=== PATIENT | male | born 1975 | race Caucasian/White ===

== ENCOUNTER 2017-01-26 10:42 | Emergency (ER) | payer MEDICAID ==
[~2017-01-26] VITALS: Ht 180.3 cm; Wt 113.4 kg
--- OUTSIDE RECORDS SUMMARY | 2017-01-26 10:51 | External Medical Summary Rpt | CCD ---
Demographics Preferred Language German Marital Status Unknown Lutheran Affiliation Unknown Race Unknown Ethnic Group Unknown Author Author , BILLY CERVANTES Address Unknown Phone Immunization No patient found.
--- OUTSIDE RECORDS SUMMARY | 2017-01-26 10:51 | External Medical Summary Rpt ---
Author Author BILLY Perea, BILLY Perea Organization [employer] Address Unknown Phone Unavailable
--- OUTSIDE RECORDS SUMMARY | 2017-01-26 10:51 | External Medical Summary Rpt | CCD ---
Author Author , ANGELIKA CERVANTES Address Unknown Phone [email or web address] Purpose Continuity of Care Document - 06-06-2016 through 2016 Problems Code Diagnosis DOS Provider Status M1A.0710 IDIOPATHIC 06-06-2016 CHRONIC GOUT, RIGHT ANKLE AND FOOT, WITHOUT TOPHUS (TOPHI)
--- OUTSIDE RECORDS SUMMARY | 2017-01-26 10:51 | External Medical Summary Rpt | CCD ---
Author Author , ANGELIKA CERVANTES Address Unknown Phone [email or web address] Purpose Continuity of Care Document - 06-06-2016 through 2016 Problems Code Diagnosis DOS Provider Status M1A.0710 IDIOPATHIC 06-06-2016 CHRONIC GOUT, RIGHT ANKLE AND FOOT, WITHOUT TOPHUS (TOPHI)
--- OUTSIDE RECORDS SUMMARY | 2017-01-26 10:51 | External Medical Summary Rpt | CCD ---
Author Author [employer] Organization [employer] Address Unknown Phone Unavailable Purpose Continuity of Care Document - through 2016
--- OUTSIDE RECORDS SUMMARY | 2017-01-26 10:51 | External Medical Summary Rpt | CCD ---
Demographics Preferred Language Tajik Marital Status Unknown Sabianism Affiliation Unknown Race Unknown Ethnic Group Unknown Author Author , BILLY CERVANTES Address Unknown Phone Immunization No patient found.
--- NOTE | 2017-01-26 11:34 | Urgent Treatment Center Report ---
See Addendum History of Present Issue Date/Time Seen by Provider 01/26/17 1133 Visit Reason Pt arrived:Walked Presenting Problem:COUGH, CONGESTION, CHILLS Location if Accident: Onset of symptoms date/time:/ or onset unknown for:MEDICAL HX UNKNOWN Have you (or family members/close friends) recently traveled outside the [place]? N If Yes, where/when: Have you had exposure to infectious disease within the past month? TB? Other? Specify: Here w/ due to cough, chest congestion, mild occasional SOA, chills. No fevers. Cough worse at night and associated with wheezing. Mostly dry. Nonsmoker. Chew tobacco. No known fevers. with same symptoms x 1.5 weeks. Pt started 4 days ago. Source patient Exam Limitations no limitations ALLERGIES Coded Allergies: Penicillins (Mild, 01/26/17) History Medical History General CAD? No Angina: No NM: No Hypertension? No Hyperlipidemia? No CHF? No DVT? No PE? No COPD? No Asthma? No Anemia? No GERD? No Gastric ulcers? No GI Bleed? No Hernia? No Thyroid Problems? No Hypothyroidism? No CVA? No Seizures? No Diabetes? No Renal Insuffiency? No UTI? No Stones? No BPH? No GB Disease: No Nephritic Syndrome? No Asplenia? No Hepatitis? No Sickle Cell Disease? No Arthritis? No Migraines? No Cataracts? No Glaucoma? No MRSA? No HIV? No TB? No Anxiety? No Depression? No Cancer? No More? No Immunization HX DT/Tetanus 1-4 Years Ago Surgical Hx Previous Surgery?N Social History Smoking Hx Smoker: Never Smoker Tobacco: Yes Type Chew Alcohol Alcohol: No Review of Systems All Other Systems Reviewed and Negative Constitutional see HPI Eyes denies drainage ENT nose discharge, nose congestion. denies: ear pain, throat pain. Respiratory see HPI Cardiovascular denies chest pain Gastrointestinal denies no symptoms reported Musculoskeletal denies joint pain Skin denies rash Psychiatric/Neurological denies headache Comment Hx of HTN. Typically borderline. Has taken steroids without difficulty. Aware may increase BP. Rvwd risks/side effects. Still wants it. Physical Exam Vital Signs Vital Signs Date Time Temp Pulse Resp B/P Pulse O2 O2 Flow FiO2 Ox Delivery Rate 01/26 1158 98.4 55 16 160/94 98 01/26 1103 98.4 55 16 160/94 98 General Appearance normal appearance, no apparent distress Eye Exam - bilateral eye normal exam Ear, Nose, Throat normal ENT inspection (x/ mild nasal congestion&chew) Neck non-tender, supple Respiratory Status Yes: trachea midline, chest symmetrical, non tender chest, non productive cough (unchanged w/ deep breath). No: respiratory distress, use of accessory muscles, pain on inspiration, pain on expiration. Lung Sounds anterior: lungs clear. posterior: lungs clear. bilateral: lungs clear. Cardiovascular regular rate/rhythm, no peripheral edema, no murmur Neurologic alert, oriented x 3 Mental status normal mood/affect Skin normal color, warm/dry Lymphatic no adenopathy Medical Decision Making LABS/Meds/Orders Pt receiving controlled substance in ED? No Results/Orders Current Medication Orders Sig/Ra Start time Last Medication Dose Route Stop Time Status Admin Methylprednisolone 125 MG ONCE ONE 01/26 1200 DCD Sodium Succinate IM 01/26 1201 Methylprednisolone 0 .STK-MED ONE 01/26 1153 DC Sodium Succinate .ROUTE Departure Departure Time of Disposition 1152 Disposition DC Home or Self Care(routine) Clinical Impression Primary Impression: Bronchitis, acute Qualifiers: Bronchitis organism: unspecified organism Qualified Code: J20.9 - Acute bronchitis, unspecified Condition STABLE Referrals [facility] (Family) IMMEDIATELY for new or worsening symptoms OR no noticeable improvement over the next 48-72 hours. 911 for difficulty breathing. Patient Instructions DI for Acute Bronchitis Additional Instructions * No antibotic today. Likely viral. Try this plan of care and if no improvement or getting worse, be sure to follow up. * Monitor Temp. Seek treatment if fevers develop * humidifier/vaporizer/hot steamy shower * Inhaler every 4-6 hours as needed like we discussed. If unsure how to use it, ask pharmacist to demonstrate how. Should help open airways and improve cough, wheezing, shortness of breath. * Mucinex during the day for your cough and cough suppressant only at night. Be sure to drink lots of water. Insurance may not cover a prescription of mucinex. Might be cheaper to get 400mg tablets and take 2 tablets morning, midday and evening all with lots of water. * Promethazine DM cough syrup will cause drowsiness. Use it only at night. No driving, operating machinery or caring for small children after taking it. * Start steroid tomorrow. Helps with inflammation therefore, cough and wheezing. Follow directions on package. Rvwd side effects. Monitor your blood pressure and if remains >140/90, stop the steroid and follow up with primary care. Pt reports they have taken them before. Discharge Counseling Counseled pt/family regarding diagnosis, medications/RX, home care, follow up needs Prescriptions Current Visit Scripts ALBUTEROL (Proventil Hfa Inhaler) 1-2 PUFF IH Q4-6H PRN PRN SOA, wheezing #1 CAN Prednisone (Prednisone 20MG) 20 MG PO BID #10 TAB PROMETHAZINE/DEXTROMETHORPHAN (Promethazine-Dm Syrup) 10 ML PO QHSP PRN cough #120 ML will cause drowsiness Comments At discharge, pt's spouse reports she thought they needed an antibiotic because they are from a generation where they have always got them and therefore, have no immunity to fight off their own illnesses so needs antibiotics. Lengthy discussion about antibiotics, virus vs bacterial and resistance. Now reporting tonja did help her red sore throat and abiodun ear pain w/ fluid. Willing to try this plan of care for 48 hours but if no improvement or starts running fevers, aware we will reevlauate need for antibiotic. + understanding and agrees. at [id number]
[2017-01-26] MEDS ORDERED: PREDNISONE 20MG20 MG PO (11:54)
[2017-01-26] MEDS ORDERED: PROMETHAZINE D118 ML PO (11:54)
[2017-01-26] MEDS ORDERED: PROVENTIL0.09 MG/A1 IH (11:54)
[2017-01-26 11:58] VITALS: BP 160/94
== END 2017-01-26 11:59 | disposition home or self-care (01) ==
LOC: UTC 10:42
DX: J20.9 Acute bronchitis, unspecified (principal); I10 Essential (primary) hypertension; Z88.0 Allergy status to penicillin